=== PATIENT | male | born 1990 | race Caucasian/White ===

== ENCOUNTER 2017-09-27 00:39 | Emergency (ER) | payer OTHER ==
[~2017-09-27] VITALS: Ht 180.3 cm; Wt 109.3 kg
[2017-09-27 00:53] VITALS: Ht 180.3 cm; Wt 109.3 kg
[2017-09-27 01:59] VITALS: BP 150/97
== END 2017-09-27 01:59 | disposition home or self-care (01) ==
LOC: ED 00:39
DX: H57.12 Ocular pain, left eye (principal); Z88.8 Allergy status to other drugs, medicaments and biological substances